=== PATIENT | female | born 2000 | race Two or more races ===

== ENCOUNTER 2019-06-20 22:18 | Outpatient (CLI) | payer MEDICAID ==
[2019-06-20 23:03] LABS: APPEARANCE,URINE CLOUDY; BILIRUBIN,URINE NEGATIVE (NEGATIVE); COLOR,URINE YELLOW; GLUCOSE, URINE NEGATIVE (NEGATIVE); KETONES,URINE NEGATIVE (NEGATIVE); LEUKOCYTE ESTERASE,URINE LARGE (NEGATIVE); NITRITE,URINE NEGATIVE (NEGATIVE); PROTEIN,URINE NEGATIVE (NEGATIVE); URINE SPECIFIC GRAVITY 1.005; UROBILINOGEN,URINE NEGATIVE mg/dL (<2.0)
[2019-06-20 23:20] LABS: URINE AMPHETAMINES SCREEN NEGATIVE; URINE BARBITURATES SCREEN NEGATIVE; URINE BENZODIAZEPINES SCREEN NEGATIVE; URINE COCAINE SCREEN NEGATIVE; URINE MARIJUANA (THC) SCREEN NEGATIVE; URINE METHADONE SCREEN NEGATIVE; URINE PHENCYCLIDINE SCREEN NEGATIVE
--- NOTE | 2019-06-21 00:37 | Non Stress Test Report ---
Non Stress Test Datetime Report Generated by CPN: 06/21/2019 00:37 INDICATION Indication for Study: Ordered by Provider MONITORING Monitor Explained: Monitor Explained; Test Explained; Patient Verbalized Understanding Time off Monitor: 06/21/2019 00:25 NST INTERVENTIONS NST Interventions: None Physician Notified NST: Titus BABY A: [id number] BABY A Movement : Present Contraction Frequency : irregular FHR Baseline : 135 Accelerations : 15X15 Decelerations : None Variability : Moderate 6-25bpm NST Review: Meets Criteria for Reactive NST NST Review and Verified By : E. Jilek RN NST Results: Reactive NST REPORT Report Trigger: Send Report
== END 2019-06-21 00:34 | disposition home or self-care (01) ==
LOC: LC 22:18
PROVIDERS: ATTEND Obstetrics & Gynecology
PROC: 4A1HXCZ Monitoring of Products of Conception, Cardiac Rate, External Approach (ICD-10-PCS; principal; 2019-06-20)
DX: O47.1 False labor at or after 37 completed weeks of gestation (principal); Z3A.39 39 weeks gestation of pregnancy
CPT/HCPCS: 59025; 80307; 81005

== ENCOUNTER 2019-06-27 13:44 | Emergency (ER) | payer MEDICAID ==
[2019-06-27] MEDS ORDERED: METOCLOPRAMIDE HCL 10 MG TABLET PO ONE (13:55)
[2019-06-27] MEDS ORDERED: ACETAMINOPHEN 325 MG TABLET PO ONE (13:57)
[2019-06-27 13:58] VITALS: BP 135/86
--- NOTE | 2019-06-27 14:00 | ER Document Report ---
HPI - HPI Time Seen by Provider: 06/27/19 13:55 Pain Level: 4 Notes: Patient is a 18-year-old female who is roughly 40 weeks who presents complaining of sore throat, occasional dry cough, watery diarrhea, nausea that began yesterday. Patient is still able to eat and drink without difficulty otherwise. She is urinating normally. She has not noticed any vaginal bleeding, odor, or discharge. Denies any headache, fever, neck pain, chest pain, palpitations, syncope, shortness of breath, wheeze, dyspnea, abdominal pain, vomiting, urinary retention, dysuria, hematuria, back pain, or rash. - ROS Systems Reviewed and Negative: Yes All other systems reviewed and negative - EENT EENT: REPORTS: Sore Throat - RESPIRATORY Respiratory: REPORTS: Coughing - REPRODUCTIVE Reproductive: DENIES: : Past Medical History - Social History Smoking Status: Never Smoker Frequency of alcohol use: None Drug Abuse: None Family History: Reviewed & Not Pertinent Patient has suicidal ideation: No Patient has homicidal ideation: No Renal/ Medical History: Denies: Hx Peritoneal Dialysis Vertical Provider Document - CONSTITUTIONAL Agree With Documented VS: Yes Notes: PHYSICAL EXAMINATION: GENERAL: Well-appearing, well-nourished and in no acute distress. A&Ox4. Answers questions appropriately. Moves comfortably w/o notable distress HEAD: Atraumatic, normocephalic. EYES: Pupils equal round and reactive to light, extraocular movements intact, sclera anicteric, conjunctiva are normal. ENT: EAC clear b/l. TM's intact b/l without erythema, fluid, or perforation. Nares patent and without discharge. oropharynx mild erythema without exudates. 1+ tonsilar hypertrophy with mild erythema no exudate. No palatine shift. Uvula midline. No tongue protrusion. No drooling, hoarseness, or airway compromise. Moist mucous membranes. No sinus tenderness. NECK: Normal range of motion, supple without lymphadenopathy. No rigidity/meningismus. LUNGS: Breath sounds clear to auscultation bilaterally and equal. No wheezes rales or rhonchi. No retractions HEART: Regular rate and rhythm without murmurs, rubs, gallops. ABDOMEN: Soft, gravid abd, nontender. No guarding, no rebound. Normal bowel sounds present. No CVA tenderness bilaterally. NEUROLOGICAL: Normal speech, normal gait. PSYCH: Normal mood, normal affect. SKIN: Warm, Dry, normal turgor, no rashes or lesions noted. - INFECTION CONTROL TRAVEL OUTSIDE OF THE [place] IN LAST 30 DAYS: No Course - Re-evaluation Re-evalutation: 06/27/19 Patient is an afebrile, well-hydrated, 18-year-old female who presents to the ED with acute URI, suspect viral. Vitals are acceptable without significant tachycardia, tachypnea, or hypoxia. PE is otherwise unremarkable. Rapid strep neg, cx pending. UA acceptable. No other labs or imaging warranted at this time based on H&P. Patient has no significant cardiopulmonary or immunocompromised medical conditions. Patient's lungs are clear to auscultation bilaterally. Patient is tolerating p.o. without any difficulties. Pt given tylenol/reglan. Low suspicion for any meningitis, sepsis, peritonsillar/pharyngeal abscess, respiratory compromise, severe dehydration, acute abd, active labor, or other emergent systemic condition at this time. Patient is aware this condition can change from initial presentation and she needs to monitor symptoms closely. Conservative measures otherwise for symptoms. Recheck with your PCM in 3-5 days. Call your X RAY NURSE tomorrow to fu rther discuss symptoms and management. Return to the ED with any worsening/concerning symptoms otherwise as reviewed in discharge. Patient is in agreement. Discharge - Discharge Clinical Impression: Acute URI Condition: Stable Disposition: HOME, SELF-CARE Additional Instructions: Maintain adequate fluid intake tylenol as needed alternating every 3 hours for fever/body ache over the counter cold medication as needed for symptoms Humidified air may help Wash your hands regularly Wear a mask when coughing F/u: with your PCM in 3-5 days for a recheck Call your X RAY NURSE tomorrow to discuss further options and treatment plans. Return to the ED with any fever, altered mental status/behavior, chest pain, palpitations, syncope, headache, neck pain/stiffness, shortness of breath, chest pains, wheezing, drooling, trouble swallowing/breathing, abdominal pain, n/v/d, rash, or worsening/concerning symptoms otherwise. Prescriptions: Metoclopramide HCl [Reglan] 10 mg PO BID PRN #6 tablet PRN Reason: Forms: Elevated Blood Pressure Referrals: [facility] [Provider Group] - Follow up as needed
[2019-06-27 14:24] LABS: APPEARANCE,URINE SLIGHTLY-CLOUDY; BILIRUBIN,URINE NEGATIVE (NEGATIVE); COLOR,URINE YELLOW; GLUCOSE, URINE NEGATIVE (NEGATIVE); KETONES,URINE NEGATIVE (NEGATIVE); LEUKOCYTE ESTERASE,URINE SMALL (NEGATIVE); NITRITE,URINE NEGATIVE (NEGATIVE); PROTEIN,URINE NEGATIVE (NEGATIVE); URINE SPECIFIC GRAVITY 1.006; UROBILINOGEN,URINE NEGATIVE mg/dL (<2.0)
== END 2019-06-27 14:30 | disposition home or self-care (01) ==
LOC: ER 13:44
DX: O99.519 Diseases of the respiratory system complicating pregnancy, unspecified trimester (principal); J06.9 Acute upper respiratory infection, unspecified; J02.9 Acute pharyngitis, unspecified; J35.1 Hypertrophy of tonsils; O26.899 Other specified pregnancy related conditions, unspecified trimester; R05 Cough; R19.7 Diarrhea, unspecified; R11.0 Nausea; Z3A.00 Weeks of gestation of pregnancy not specified
CPT/HCPCS: 99283; 87070; 87880; 81001; J3490 ×2

== ENCOUNTER 2019-06-28 22:16 | Inpatient (IN) | payer MEDICAID ==
[2019-06-28 22:53] LABS: APPEARANCE,URINE SLIGHTLY-CLOUDY; BILIRUBIN,URINE NEGATIVE (NEGATIVE); COLOR,URINE YELLOW; GLUCOSE, URINE NEGATIVE (NEGATIVE); KETONES,URINE NEGATIVE (NEGATIVE); LEUKOCYTE ESTERASE,URINE NEGATIVE (NEGATIVE); NITRITE,URINE NEGATIVE (NEGATIVE); PROTEIN,URINE NEGATIVE (NEGATIVE); URINE SPECIFIC GRAVITY 1.011; UROBILINOGEN,URINE NEGATIVE mg/dL (<2.0)
[2019-06-28 23:07] LABS: URINE AMPHETAMINES SCREEN NEGATIVE; URINE BARBITURATES SCREEN NEGATIVE; URINE BENZODIAZEPINES SCREEN NEGATIVE; URINE COCAINE SCREEN NEGATIVE; URINE MARIJUANA (THC) SCREEN NEGATIVE; URINE METHADONE SCREEN NEGATIVE; URINE PHENCYCLIDINE SCREEN NEGATIVE
[2019-06-29] MEDS ORDERED: RINGERS SOLUTION,LACTATED 1,000 ML IV ONE (00:08)
[2019-06-29 00:38] LABS: ABSOLUTE BASOPHILS # (AUTO) 0.1 10^3/uL (0.0-0.2); ABSOLUTE EOSINOPHILS # (AUTO) 0.1 10^3/uL (0.0-0.6); ABSOLUTE NEUT (AUTO) 11.9 10^3/uL (1.7-8.2); BASOPHILS % (AUTO) 0.4 % (0-2); EOSINOPHILS % (AUTO) 0.4 % (0-6); HEMATOCRIT 41.2 % (36.0-47.0); HEMOGLOBIN 13.2 g/dL (12.0-15.5); LYMPHOCYTES % (AUTO) 18.6 % (13-45); MEAN CORPUSCULAR HEMOGLOBIN 23.7 pg (27.0-33.4); MEAN CORPUSCULAR HGB CONC 32.1 g/dL (32.0-36.0); MEAN CORPUSCULAR VOLUME 74 fl (80-97); MONOCYTES % (AUTO) 6.2 % (3-13); PLATELET COUNT 160 10^3/uL (150-450); RED BLOOD COUNT 5.58 10^6/uL (3.72-5.28); RED CELL DISTRIBUTION WIDTH 14.6 % (11.5-14.0); SEGMENTED NEUTROPHILS % (AUTO) 74.4 % (42-78); TOTAL CELLS COUNTED % (AUTO) 100 %
[2019-06-29] MEDS ORDERED: LIDOCAINE 1% INJ-PF (10 MG/ML) 30 ML SDV ONE (00:47)
[2019-06-29] MEDS ORDERED: OXYTOCIN/NORMAL SALINE 20 UNIT/1,000 ML RTUINJ ONE (00:47)
[2019-06-29] MEDS ORDERED: MISOPROSTOL 0.2 MG TABLET ONE (00:47)
[2019-06-29] MEDS ORDERED: OXYTOCIN 10 UNIT/ML VIAL ONE (00:47)
[2019-06-29] MEDS ORDERED: EPHEDRINE SULFATE INJ 50 MG/1 ML AMPULE ONE (00:52)
[2019-06-29] MEDS ORDERED: BUPIVACAINE HCL 0.25 % INJ/PF (2.5 MG/1 ML) 30 ML VIAL ONE (00:53)
[2019-06-29] MEDS ORDERED: FENTANYL/BUPIVACAINE/NS/PF 300 MCG/150 ML RTUINJ EPI ONE (00:53)
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
[2019-06-29] MEDS ORDERED: BENZOCAINE/MENTHOL AEROSOL SPRAY 56 ML TOP PRN (06:59)
[2019-06-29] MEDS ORDERED: DIPH/PERTUSS(ACELL)/TETANUS VAC/PF 0.5 ML SYR (>=10YO) IM PRN (06:59)
[2019-06-29] MEDS ORDERED: ACETAMINOPHEN WITH CODEINE #3 TABLET PO PRN (06:59)
[2019-06-29] MEDS ORDERED: OXYTOCIN/NORMAL SALINE 20 UNIT/1,000 ML RTUINJ IV PRN (06:59)
[2019-06-29] MEDS ORDERED: DIBUCAINE 1% OINTMENT 56 GM TP PRN (06:59)
[2019-06-29] MEDS ORDERED: ZOLPIDEM TARTRATE 5 MG TABLET PO PRN (06:59)
[2019-06-29] MEDS ORDERED: BENZOCAINE/MENTHOL AEROSOL SPRAY 56 ML ONE (07:44)
--- NOTE | 2019-06-29 08:52 | Delivery Summary ---
Del Sum A-C Datetime Report Generated by CPN: 06/29/2019 08:52 DELIVERY PERSONNEL DELIVERY PERSONNEL: [id number] Delivery Doctor:: Zee Sunshine MD Labor and Delivery Nurse:: Sheryl Rooney RNcommunity health nurse Nurse:: Padmini Short RN Special Education Secretary/PERSONNEL RECORDS CLERK: Halliedavid Shi, ST MATERNAL INFORMATION Delivery Anesthesia: Epidural Medications After Delivery: Pitocin Bolus-Please Comment; Pitocin Drip 20 Units/1000ml NSS Estimated Blood Loss (ml): 50 Delivery QBL: 50 Delivery QBL Comment: Documented in I_O Maternal Complications: None Provider Comments: of a viable female at 0631 with an OA with nuchal/body cord x 1 presentation; APGARS 8, 9; 2nd deg left periurethral and 1st deg right vag lac LABOR SUMMARY EDC: 06/25/2019 00:00 No. Babies in Womb: 1 Attempted: No Labor Anesthesia: Epidural LABOR INFORMATION Reason for Induction: Not Applicable Onset of Labor: 06/28/2019 11:45 Complete Dilatation: 06/29/2019 05:20 Oxytocin: N/A Group B Beta Strep: negative Antibiotics # of Doses: 0 Antibiotics Time of Last Dose: N/A Steroids Given: None Reason Steroids Not Administered: Not Applicable MEMBRANES Membranes Rupture Method: Artificial Rupture of Membranes: 06/29/2019 04:05 Length of Rupture (hr): 2.43 Amniotic Fluid Color: Clear Amniotic Fluid Amount: Small Amniotic Fluid Odor: Normal STAGES OF LABOR Stage 1 hr: 17 Stage 1 min: 35 Stage 2 hr: 1 Stage 2 min: 11 Stage 3 hr: 0 Stage 3 min: 9 Total Time in Labor hr: 18 Total Time in Labor min: 55 VAGINAL DELIVERY Episiotomy: None Laceration #1: Periurethral Laceration Extension #1: Second Degree Laceration #2: Vaginal Laceration Extension #2: First Degree Laceration Repair: Yes Laceration Repair Note: Both lacs repaired with 3-0 Chromic Sponge Count Correct: Yes Sharps Count Correct: Yes CSECTION DELIVERY Primary Indication: N/A Secondary Indication: N/A CSection Incidence: N/A Labor: N/A Elective: N/A CSection Incision: N/A BABY A INFORMATION Infant Delivery Date/Time: 06/29/2019 06:31 Method of Delivery: Vaginal Born in Route : No : N/A Forceps: N/A Vacuum Extraction: N/A Shoulder Dystocia : No PRESENTATION/POSITION BABY A Presentation: Cephalic Cephalic Presentation: Vertex Vertex Position: Occipital Anterior Breech Presentation: N/A PLACENTA INFORMATION BABY A Placenta Delivery Time : 06/29/2019 06:40 Placenta Method of Delivery: Spontaneous Placenta Status: Delivered SCORES BABY A Heart Rate 1 min: >100 bpm Resp Effort 1 min: Good Cry Reflex Irritability 1 min: Cough or Sneeze or Pulls Away Muscle Tone 1 min: Active Motion Color 1 min: Blue/Pale Resuscitation Effort 1 min: Tactile Stimulation SCORE 1 MIN: 8 Heart Rate 5 min: >100 bpm Resp Effort 5 min: Good Cry Reflex Irritability 5 min: Cough or Sneeze or Pulls Away Muscle Tone 5 min: Active Motion Color 5 min: Body [place], Extremities Blue Resuscitation Effort 5 min: Tactile Stimulation SCORE 5 MIN: 9 INFORMATION BABY A Gestational Age at Delivery: 40.4 Gestational Status: Full Term- 39- 40.6 Weeks Outcome : Liveborn Infant Condition : Stable Infant Sex: Female IDENTIFICATION BABY A Verification Date/Time: 06/29/2019 06:52 ID Band Number: [id number] Mother's Name Verified: Yes RN Verifying : LJeffrey Rooney, LARISSA, BJeffrey Martinez, RN WEIGHT/LENGTH BABY A Birthweight (gm): 2895 Weight (lb): 6 Weight (oz): 6 Infant Length (in): 20.50 Length (cm): 52.07 CORD INFORMATION BABY A No. Cord Vessels: 3 Nuchal Cord : Around Neck x1, Loose Nuchal Cord- Other: body Cord Blood Taken: Yes-For Storage (Mom's Blood type +) Suction: None ASSESSMENT BABY A Complications: Multiple Variable Decels Physical Findings at Delivery: Within Normal Limits Infant Respirations: Appears Normal Skin to Skin: Yes Skin to Skin Time (min): 90 Promotion Specialist/ALS Called : No Infant Care By: CJeffrey Short, RN Transferred To: Remains with Mother BABY B INFORMATION : N/A SIGNATURES Signature: with User ID: [email or web address]
[2019-06-29] MEDS: DOCUSATE SODIUM 100 MG CAPSULE PO SCH ×2 (09:38→17:49)
[2019-06-29] MEDS: PRENATAL VITAMIN W DHA CAPSULE PO SCH (09:38)
[2019-06-29] MEDS: FERROUS SULFATE 325 MG TABLET PO SCH ×2 (09:38→17:50)
[2019-06-29] MEDS: SENNOSIDES/DOCUSATE 8.6-50 MG 1 EACH TABLET PO SCH (09:39)
--- NOTE | 2019-06-29 10:47 | PDOC PROGRESS REPORT ---
Subjective-OB Progress Note for:: 06/29/19 Physical Exam (OB) Vital Signs: Temp Pulse Resp BP Pulse Ox 97.8 F 60 16 125/76 97 06/29/19 09:23 06/29/19 09:23 06/29/19 09:23 06/29/19 09:23 06/29/19 09:23 Intake & Output 06/28/19 06/29/19 06/30/19 06:59 06:59 06:59 Weight 77.2 kg - PIH/Pre-Eclampsia DTR's: 2 + Clonus: Negative Headache: Absent Epigastric Pain: No Visual Changes: No - Episiotomy/Laceration Site Condition: Well Approximated - Lochia Lochia Amount: Small 10-25 ml - Abdomen Description: Soft Hernia Present: No Bowel Sounds: Normoactive Flatus Presence: Present Stool: No Objective-Diagnostic Laboratory: 06/29/19 00:25 06/28/19 06/29/19 06/29/19 22:20 00:25 00:25 WBC 16.0 H RBC 5.58 H Hgb 13.2 Hct 41.2 MCV 74 L MCH 23.7 L MCHC 32.1 RDW 14.6 H Plt Count 160 Seg Neutrophils % 74.4 Lymphocytes % 18.6 Monocytes % 6.2 Eosinophils % 0.4 Basophils % 0.4 Absolute Neutrophils 11.9 H Absolute Lymphocytes 3.0 Absolute Monocytes 1.0 Absolute Eosinophils 0.1 Absolute Basophils 0.1 Urine Color YELLOW Urine Appearance SLIGHTLY-CLOUDY Urine pH 7.0 Ur Specific [place] 1.011 Urine Protein NEGATIVE Urine Glucose (UA) NEGATIVE Urine Ketones NEGATIVE Urine Blood NEGATIVE Urine Nitrite NEGATIVE Ur Leukocyte Esterase NEGATIVE Blood Type A POSITIVE Antibody Screen NEGATIVE
[2019-06-29] MEDS: ACETAMINOPHEN WITH CODEINE #3 TABLET PO PRN ×2 (11:40→16:41)
[2019-06-29] MEDS ORDERED: ONDANSETRON HCL INJ/PF 4 MG/2 ML SDV IV ONE (14:00)
[2019-06-29] MEDS: IBUPROFEN 800 MG TABLET PO SCH ×2 (16:36→21:47)
[2019-06-29] MEDS ORDERED: PSEUDOEPHEDRINE HCL 30 MG TABLET PO PRN (21:06)
[2019-06-29] MEDS: ONDANSETRON 4 MG TAB.RAPDIS PO PRN (21:47)
[2019-06-30] MEDS: ACETAMINOPHEN WITH CODEINE #3 TABLET PO PRN ×2 (01:05→18:45)
[2019-06-30] MEDS: IBUPROFEN 800 MG TABLET PO SCH ×3 (06:20→21:35)
[2019-06-30 07:32] LABS: HEMATOCRIT 37.2 % (36.0-47.0); HEMOGLOBIN 11.8 g/dL (12.0-15.5); MEAN CORPUSCULAR HEMOGLOBIN 23.9 pg (27.0-33.4); MEAN CORPUSCULAR HGB CONC 31.8 g/dL (32.0-36.0); MEAN CORPUSCULAR VOLUME 75 fl (80-97); PLATELET COUNT 147 10^3/uL (150-450); RED BLOOD COUNT 4.96 10^6/uL (3.72-5.28); RED CELL DISTRIBUTION WIDTH 14.6 % (11.5-14.0); WHITE BLOOD COUNT 16.9 10^3/uL (4.0-10.5)
--- NOTE | 2019-06-30 09:30 | PDOC PROGRESS REPORT ---
Subjective-OB Progress Note for:: 06/30/19 Subjective: pt doing well no complaints Physical Exam (OB) Vital Signs: Temp Pulse Resp BP Pulse Ox 97.6 F 68 16 124/79 100 06/30/19 07:53 06/30/19 07:53 06/30/19 07:53 06/30/19 07:53 06/30/19 07:53 Intake & Output 06/29/19 06/30/19 07/01/19 06:59 06:59 06:59 Weight 77.2 kg - PIH/Pre-Eclampsia DTR's: 2 + Clonus: Negative Headache: Absent Epigastric Pain: No Visual Changes: No - Lochia Lochia Amount: Small 10-25 ml Lochia Color: Rubra/Red - Abdomen Description: Soft, Round Hernia Present: No Bowel Sounds: Normoactive Flatus Presence: Present Fundal Description: Firm, Midline Fundal Height: u/u - u/2 - Respiratory Breath sounds: Clear - Extremities Calf: Nontender Objective-Diagnostic Laboratory: 06/30/19 06:37 06/30/19 06:37 WBC 16.9 H RBC 4.96 Hgb 11.8 L Hct 37.2 MCV 75 L MCH 23.9 L MCHC 31.8 L RDW 14.6 H Plt Count 147 L Assessment and Plan(PN) - Assessment and Plan (1) Delivery normal Is this a current diagnosis for this admission?: Yes - Time Spent with Patient Time with patient: Less than 15 minutes Medications reviewed and adjusted accordingly: Yes - Disposition Anticipated Discharge: Home Within: within 24 hours
[2019-06-30] MEDS: ONDANSETRON 4 MG TAB.RAPDIS PO PRN (09:34)
[2019-06-30] MEDS: DOCUSATE SODIUM 100 MG CAPSULE PO SCH ×2 (09:45→18:31)
[2019-06-30] MEDS: PRENATAL VITAMIN W DHA CAPSULE PO SCH (09:45)
[2019-06-30] MEDS: FERROUS SULFATE 325 MG TABLET PO SCH ×2 (09:45→18:31)
[2019-06-30] MEDS: SENNOSIDES/DOCUSATE 8.6-50 MG 1 EACH TABLET PO SCH (09:46)
[2019-07-01] MEDS: IBUPROFEN 800 MG TABLET PO SCH (06:33)
[2019-07-01] MEDS: SENNOSIDES/DOCUSATE 8.6-50 MG 1 EACH TABLET PO SCH (10:21)
[2019-07-01] MEDS: FERROUS SULFATE 325 MG TABLET PO SCH (10:21)
[2019-07-01] MEDS: PRENATAL VITAMIN W DHA CAPSULE PO SCH (10:21)
[2019-07-01] MEDS: DOCUSATE SODIUM 100 MG CAPSULE PO SCH (10:21)
[2019-07-01 11:31] VITALS: BP 132/77
--- NOTE | 2019-07-01 12:02 | PDOC DISCHARGE SUMMARY ---
Final Diagnosis Discharge Date: 07/01/19 - Final Diagnosis (1) Delivery normal Is this a current diagnosis for this admission?: Yes (2) Obstetric vaginal laceration Is this a current diagnosis for this admission?: Yes Discharge Data - Discharge Medication Prescriptions: Ibuprofen [Motrin 800 mg Tablet] 800 mg PO Q8HP PRN #60 tablet PRN Reason: Pnv No.95/Ferrous Fum/Folic AC [ Caplet] 1 tab PO DAILY #90 tablet Home Medications: Ibuprofen [Motrin 800 mg Tablet] 800 mg PO Q8HP PRN #60 tablet 07/01/19 Pnv No.95/Ferrous Fum/Folic AC [ Caplet] 1 tab PO DAILY #90 tablet 07/01/19 Procedures: NST Intrapartum Procedure(s): Spontaneous Vaginal Delivery Complication(s): Laceration-Vaginal Laceration-Degree: 1st - Diagnosis Test Laboratory: Temp Pulse Resp BP Pulse Ox 98.4 F 63 16 132/77 H 99 07/01/19 11:30 07/01/19 11:30 07/01/19 11:30 07/01/19 11:30 07/01/19 11:30 06/28/19 06/29/19 06/30/19 22:20 00:25 06:37 RBC 5.58 H 4.96 Hgb 13.2 11.8 L Hct 41.2 37.2 Urine Opiates Screen NEGATIVE - Discharge information/Instructions Discharge Activity: Balance Activity w/Rest, Pelvic Rest Discharge Diet: Regular Disposition: HOME, SELF-CARE Follow up with: [facility] in: 4, Weeks
[2019-07-01] MEDS: ONDANSETRON 4 MG TAB.RAPDIS PO PRN (12:55)
== END 2019-07-01 14:20 | disposition home or self-care (01) | DRG 807 ==
LOC: LC 22:16 → LR 06-29 00:10 → 2S 06-29 09:20
PROVIDERS: ADMIT Obstetrics & Gynecology; ATTEND Obstetrics & Gynecology
PROC: 10E0XZZ Delivery of Products of Conception, External Approach (ICD-10-PCS; principal; 2019-06-29)
PROC: 0HQ9XZZ Repair Perineum Skin, External Approach (ICD-10-PCS; 2019-06-29)
PROC: 0UQMXZZ Repair Vulva, External Approach (ICD-10-PCS; 2019-06-29)
PROC: 10907ZC Drainage of Amniotic Fluid, Therapeutic from Products of Conception, Via Natural or Artificial Opening (ICD-10-PCS; 2019-06-29)
DX: O69.81X0 Labor and delivery complicated by cord around neck, without compression, not applicable or unspecified (principal); Z37.0 Single live birth; O70.0 First degree perineal laceration during delivery; E86.0 Dehydration; O71.82 Other specified trauma to perineum and vulva; O26.893 Other specified pregnancy related conditions, third trimester; Z3A.40 40 weeks gestation of pregnancy
CPT/HCPCS: 36415; 80307; 81005; 84112; 85025; 85027; 86592; 86850; 86900; 86901; J2405; J2590; J3010; J3490; S0119

== ENCOUNTER → 2019-06-28 | Outpatient (CLI) | payer MEDICAID ==
[2019-06-28 12:24] LABS: APPEARANCE,URINE SLIGHTLY-CLOUDY; BILIRUBIN,URINE NEGATIVE (NEGATIVE); COLOR,URINE YELLOW; GLUCOSE, URINE NEGATIVE (NEGATIVE); KETONES,URINE NEGATIVE (NEGATIVE); LEUKOCYTE ESTERASE,URINE MODERATE (NEGATIVE); NITRITE,URINE NEGATIVE (NEGATIVE); PROTEIN,URINE NEGATIVE (NEGATIVE); URINE SPECIFIC GRAVITY 1.017
[2019-06-28 12:41] LABS: URINE AMPHETAMINES SCREEN NEGATIVE; URINE BARBITURATES SCREEN NEGATIVE; URINE BENZODIAZEPINES SCREEN NEGATIVE; URINE COCAINE SCREEN NEGATIVE; URINE MARIJUANA (THC) SCREEN NEGATIVE; URINE METHADONE SCREEN NEGATIVE; URINE PHENCYCLIDINE SCREEN NEGATIVE
--- NOTE | 2019-06-28 13:12 | Non Stress Test Report ---
Non Stress Test Datetime Report Generated by CPN: 06/28/2019 13:12 DEMOGRAPHIC EGA NST: 40.3 INDICATION Indication for Study: Ordered by Provider Indication for Study (NST) Other: labor check MONITORING Monitor Explained: Monitor Explained; Test Explained; Patient Verbalized Understanding Time on Monitor: 06/28/2019 11:34 Time off Monitor: 06/28/2019 11:54 NST Duration: 20 NST INTERVENTIONS NST Interventions: PO Hydration Physician Notified NST: N Mccauley CNM BABY A Movement : Present Contraction Frequency : irregular FHR Baseline : 125 Accelerations : 15X15 Decelerations : None Variability : Moderate 6-25bpm NST Review: Meets Criteria for Reactive NST NST Review and Verified By : Miguel Qureshi RN NSSanya Results: Reactive NST REPORT Report Trigger: Send Report
== END ==
LOC: LC 11:19
PROVIDERS: ATTEND Obstetrics & Gynecology
PROC: 4A1HXCZ Monitoring of Products of Conception, Cardiac Rate, External Approach (ICD-10-PCS; principal; 2019-06-28)
DX: O48.0 Post-term pregnancy (principal); Z3A.40 40 weeks gestation of pregnancy
CPT/HCPCS: 59025; 80307; 81005